=== PATIENT | female | born 1955 | race Two or more races ===

== ENCOUNTER 2017-07-23 13:00 | Day surgery (SDC) | payer BC ==
--- NOTE | 2017-07-14 06:37 | HP ---
HISTORY AND PHYSICAL: DATE OF SURGERY: 08/06/17 DATE OF HISTORY AND PHYSICAL: 07/10/17 SURGEON: Dr. Lake. * (DICTATED BY JENNA NICOLE) PROCEDURE: Left knee arthroscopic partial meniscectomy. CHIEF COMPLAINT: Left knee pain. HISTORY OF PRESENT ILLNESS: Berenice is a very active 61-year-old female who injured her left knee about 1-1/2 months ago. She does not recall a specific injury; however, she notes that she was working out hard one day and the next day she was at her job and stepped down off of a box and felt significant amount of pain. She was seen by urgent care that same day and had x-rays at that time. She continues to have pain when she makes quick movements including jumping, squatting. She is very active doing Chandana, running, weight training, walking and hiking. She was referred to our office by Dr. Loo at [facility] and had x-rays and an MRI done with Dr. Loo. Her MRI does demonstrate a joint effusion as well as horizontal and radial tears of the posterior horn and the medial meniscus. Berenice has already undergone a cortisone injection, which helped about 1 week ago at her last appointment with Dr. Loo and has a prescription for physical therapy, though she has not started that yet. She is concerned as she very much enjoys exercising and would like to get back to that as soon as possible and is interested in a surgical procedure if that helps her to heal faster. She denies any problems with anesthesia in the past and no history of DVT or PE. PAST MEDICAL HISTORY: No known medical problems. She denies any cardiac or pulmonary problems. PAST SURGICAL HISTORY: Myomectomy and hysterectomy. MEDICATIONS: None. ALLERGIES: No known drug allergies. Denies any allergies to tape or adhesive. FAMILY MEDICAL HISTORY: Father with colon cancer. Mother with scleroderma. SOCIAL HISTORY: She denies any tobacco use currently, though she did smoke for about 18 years a pack a day. Alcohol about 14 drinks per week. Denies any illicit drug use. REVIEW OF SYSTEMS: Positive for current complaint as well as numbness and tingling in bilateral hands and history of anemia. Otherwise, a 14-point review of systems was negative. She does deny any history of MRSA, hepatitis C or HIV, as well as no problems with anesthesia or DVT or PE in the past. PHYSICAL EXAMINATION GENERAL: She is a well-developed, well-nourished 61-year-old female who appears younger than her stated age, in no acute distress. Alert and oriented with no gross neurologic deficiencies. She ambulates with an antalgic gait, favoring her right side. VITAL SIGNS: Height 67 inches. Weight 165 pounds. Respirations 12, pain level 8, BMI 25.8. Blood pressure 142/78. HEENT: Normocephalic, atraumatic. Pupils equal, round and reactive to light. Extraocular movements intact. NECK: Neck is supple. No palpable cervical lymph nodes. Thyroid is smooth and nontender. CARDIAC: Regular rate and rhythm. No murmurs, rubs or gallops. No pedal edema. 2+ bilateral pedal pulses. LUNGS: Clear to auscultation bilaterally with no wheezes, rhonchi, or rales. ABDOMEN: Soft and nontender. MUSCULOSKELETAL: Skin is intact. No erythema, warmth or discharge. Left Knee : She does have a mild effusion, flexion extension from 0 to 130, negative anterior or posterior drawer. Negative pain or laxity with varus or valgus stress. She has had joint line tenderness at the medial anterior knee. She has had a positive Silvana. Negative Jennifer. She is neurovascular intact distally. Right Knee: Skin is intact. No effusion, 0 to 130 flexion, extension. Negative anterior drawer, posterior drawer, negative Jennifer. No pain or laxity with varus and valgus stress. Negative Silvana. She has no joint line tenderness. Neurovascularly intact distally. DIAGNOSTIC STUDIES: MRI was intently reviewed as well as the radiology report from 06/06/[address] Loo, which did demonstrate horizontal and radial tear to the posterior horn of the medial meniscus on the left side. IMPRESSION: Left knee medial meniscal tears. PLAN: Berenice is scheduled to undergo a left knee arthroscopic partial meniscectomy with Dr. Lake on 08/06/17. She will return to clinic in 7-10 days postop for followup and suture removal. Prescription for pain medication will be prescribed the day of her surgery. I-STOP was checked prior to sending script. YEIMI MARKER, JENNA [id number]/[facility] #: [id number] JAVAD
[~2017-07-23 13:00] MED LIST: Buffered Lidocaine 0.9% SYRIN* 5 ML/SYR SYRINGE INTRADERM ONE; Bupivacaine 0.25% SDV* 30 ML ONE; Lidocaine 1% MPF wEPI 200,000* 30 ML SDV ONE; Sodium Citrate/Citric Acid* 15 ML UDC PO ONE
[2017-07-23] MEDS ORDERED: ceFAZolin 2 GM PREMIX (*) 2 GM/50 ML BAG IVPB ONE (13:08)
[2017-07-23] MEDS ORDERED: Buffered Lidocaine 0.9% SYRIN* 5 ML/SYR SYRINGE ONE (13:08)
[2017-07-23] MEDS ORDERED: Sodium Citrate/Citric Acid* 15 ML UDC ONE (13:08)
[2017-07-23] MEDS ORDERED: Midazolam* 1 MG/ML 2 ML VIAL (2 MG) ONE ×2 (14:06→14:15)
[2017-07-23] MEDS ORDERED: Chloroprocaine 2%* 20 ML VIAL ONE (14:15)
[2017-07-23] MEDS ORDERED: Ondansetron INJ* 2 MG/ML VIAL IV PRN (14:50)
[2017-07-23] MEDS ORDERED: fentaNYL* 50 MCG/ML 2 ML VIAL (100 MCG VIAL) IV PRN (14:50)
[2017-07-23] MEDS ORDERED: Ketorolac INJ* 30 MG/ML 1 ML VIAL IV PRN (14:50)
[2017-07-23] MEDS ORDERED: hydrALAZINE IV* 20 MG/ML VIAL ONE (16:16)
[2017-07-23] MEDS ORDERED: Labetalol IV* 5 MG/ML 20 ML VIAL ONE (16:58)
[2017-07-23 17:24] VITALS: BP 147/84
--- NOTE | 2017-07-24 15:52 | OP ---
CC: PCP OPERATIVE REPORT: DATE OF OPERATION: 07/23/17 DATE OF : 59 ATTENDING SURGEON: Emily Lake MD. SHAFTING WORKER: JENNA Espinoza An pediatric dental assistant was needed for the entirety of the case to help with positioning, retraction, and was ut ilized throughout all portions of the case. ANESTHESIOLOGIST: Dr. Rosales. ANESTHESIA: Spinal. PRE-OP DIAGNOSIS: Left knee medial meniscus tear. POST-OP DIAGNOSES: Left knee medial meniscus tear with mild osteoarthritis of the medial compartment and lateral meniscal tear with plica. OPERATIVE PROCEDURE: 1. Left knee arthroscopy with medial and lateral meniscectomies. 2. Chondroplasty in the medial femoral condyle. 3. Plica excision. COMPLICATIONS: None. ESTIMATED BLOOD LOSS: Minimal. INDICATIONS: Berenice Fermin is a 61-year-old female who was diagnosed with medial meniscus tear. She failed conservative management and elected to proceed with surgical treatment. Risks and benef its of surgery were discussed at length and included, but are not limited to bleeding; infection; dam age to nerves, vessels, surrounding structures; wound nonhealing; persistent pain; need for surgery; scarring; stiffness; incomplete relief of symptoms; risks of anesthesia. DESCRIPTION OF PROCEDURE: The patient was greeted in the preoperative area by the attending surgeon. The correct extremity was marked and consent was confirmed. The patient was then brought back to [facility] operating suite where she was placed in supine position on the operating table. She was positioned and gently sat up and underwent spinal anesthesia, which was tolerated without difficulty. Unsteril e tourniquet was placed high proximally as well as the lateral post. The left leg was then prepped a nd draped in usual sterile fashion, beginning with chlorhexidine soap, scrub, and alcohol wipe, and a final prep with ChloraPrep. After appropriate surgical pause indicating side, site, procedure, and administration of antibiotics, the knee was intraarticularly injected with 1% lidocaine with epi. The anterolateral portal was mad e sharply with an 11-blade. The scope was then introduced into the joint and the joint was examined. There were grade 0 to 1 changes in the patella. There was a moderate sized plica that was repaired. The trochlea had evidence of grade 2 changes with no obvious unstable flaps. Medial and lateral gu tters were intact without any loose debris. Scope was brought into the notch, ACL and PCL were intact . The scope was brought into the medial compartment. There were unstable flaps, tearing of the medi al meniscus, with the unstable flaps extending all the way to the root. The reema and biters were used to debride this back. The probe was used to make sure that there was no further areas of flap. There was tearing all the way to the root, which was debrided back; however, as much of the good men iscus that could be kept was kept. The chondroplasty of the medial femoral condyle was then done usi ng the shaver. The scope was then positioned in the lateral compartment. The shaver was used to ml ride back the meniscal fraying of the lateral meniscus. There were grade 1 to 2 changes in the later al plateau. The grade 0 to 1 changes in the lateral femoral condyle. Final images were obtained. T he wounds were copiously irrigated. The knee was thoroughly lavaged and removed of any loose debris. Portals were closed with 3-0 nylon. The knee was intraarticularly injected with 0.25% Marcaine plai n. Sterile dressings were applied as well as a cryo/Cuff. She was awoken from anesthesia and transf erred to the PACU in stable condition. POSTOPERATIVE PLAN: She will be weightbearing with crutches for the first 3 to 5 days. She will be discharged on pain medication as well as Toradol. DVT prophylaxis was considered, but deferred due t o no previous personal or family history. I will see the patient back in 10 to 14 days. [id number]/[facility] #: [id number]
== END 2017-07-23 17:36 | disposition home or self-care (01) ==
LOC: OR 13:00
PROVIDERS: ATTEND Orthopaedic Surgery
DX: S83.242A Other tear of medial meniscus, current injury, left knee, initial encounter (principal); S83.282A Other tear of lateral meniscus, current injury, left knee, initial encounter; M67.52 Plica syndrome, left knee; R01.1 Cardiac murmur, unspecified; Z87.891 Personal history of nicotine dependence; X50.0XXA Overexertion from strenuous movement or load, initial encounter; Y93.B9 Activity, other involving muscle strengthening exercises; Y92.9 Unspecified place or not applicable
CPT/HCPCS: A9270-GY; J0360; J0690; J2001; J2250; J2400